=== PATIENT | male | born 1965 | race Caucasian/White ===

== ENCOUNTER 2017-01-24 06:17 | Emergency (ER) | payer SELFPAY | END 2017-01-24 07:14 | disposition home or self-care (01) | LOC: ER 06:17 | DX: S50.851A Superficial foreign body of right forearm, initial encounter (principal); Z76.0 Encounter for issue of repeat prescription; I10 Essential (primary) hypertension; F17.200 Nicotine dependence, unspecified, uncomplicated; Z88.5 Allergy status to narcotic agent; W45.8XXA Other foreign body or object entering through skin, initial encounter | CPT/HCPCS: 99283 ==